=== PATIENT | male | born 1990 | race Caucasian/White ===

== ENCOUNTER 2017-01-05 15:06 | Emergency (ER) | payer SELFPAY ==
[2017-01-05 15:57] VITALS: BP 150/89
--- NOTE | 2017-01-05 17:04 | RAD ---
INDICATION: Left ankle injury. TECHNIQUE: 3 views of the left ankle were obtained. FINDINGS: Soft tissue swelling is noted along the anterolateral aspect of the ankle. No fracture is seen. Joint spaces appear maintained. IMPRESSION: SOFT TISSUE SWELLING, NO FRACTURE IS SEEN.
[2017-01-05] MEDS ORDERED: Ibuprofen TAB* 600 MG PO ONE (17:05)
--- NOTE | 2017-01-05 17:41 | RAD ---
INDICATION: Head injury. COMPARISON: There are no prior studies available for comparison. TECHNIQUE: Contiguous axial sections of the brain were obtained from the skull base to the vertex without contrast. FINDINGS: The ventricles, cisterns and sulci are within normal limits. No significant focal abnormality or mass effect is seen. There is no evidence for hemorrhage. No significant focal osseous abnormality is seen. The visualized portion of the paranasal sinuses and mastoid air cells appear clear. IMPRESSION: NO EVIDENCE FOR ACUTE INTRACRANIAL ABNORMALITY.
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
== END 2017-01-05 18:34 | disposition home or self-care (01) ==
LOC: ED 15:06
DX: S93.402A Sprain of unspecified ligament of left ankle, initial encounter (principal); S90.512A Abrasion, left ankle, initial encounter; V19.9XXA Pedal cyclist (driver) (passenger) injured in unspecified traffic accident, initial encounter; Y93.9 Activity, unspecified; Y92.9 Unspecified place or not applicable
CPT/HCPCS: 70450; 99282; A9270-GY; Q9967